=== PATIENT | female | born 1940 | race Caucasian/White ===

== ENCOUNTER 2023-09-29 20:34 | Inpatient (IN) | payer OTHER, SELFPAY ==
[2023-09-29 14:26] VITALS: BP 171/94
--- NOTE | 2023-09-29 14:49 | ED.GENMED ---
History of Present Illness
General
Chief Complaint: Musculo-Skeletal Complaint
Time Seen by Provider: 09/29/23 14:27
History of Present Illness
History of Present Illness:
83-year-old female presents to the emergency department for evaluation of severe right knee pain after falling twice at home. She was attempting to get up from a seated position and fell when right knee while flexed. Marked swelling is noted and
she is unable to move the knee without exquisite pain. She did strike her head but she is not on anticoagulants and denies any headache or vision changes
Review of Systems
Review of Systems
Allergies reviewed?: Yes
All Other Systems: ROS reviewed and negative except as documented in HPI and ROS
Phy Exam
Physical Exam
Physical Exam:
GEN: Well appearing, NAD, WDWN
HEENT: Normocephalic atraumatic Oral mucosa moist, no scleral icterus
Cardiac: Regular rate
Lung: No respiratory distress, no tachypnea
MSK: Marked swelling of the R knee, pt unable to range due to pain. NVI distal to injury
Skin: Good color, no pallor or jaundice, no rashes
Neuro: AO x3, moves all extremities freely
Psych: Calm, cooperative
Course
Orders/Labs/Results
Orders:
Orders
09/29/23 14:49
HYDROmorphone [Dilaudid] 0.5 mg IV NOW STA
CR Hip - RT w/wo Pel 2-3 Vw* Urgent
Comment:
Reason For Exam: fall
Include a pelvis x-ray?: No
CR Knee- Right 4 Or More View* Urgent
Comment:
Reason For Exam: fall
09/29/23 15:18
Basic Metabolic Panel Urgent
Complete Blood Count/With Diff Urgent
09/29/23 16:44
CT Lower Ext W/o Iv Cont Rt Urgent
Comment:
Reason For Exam: R knee injury, neg XR
09/29/23 16:48
HYDROmorphone [Dilaudid] 0.5 mg IV NOW STA
09/29/23 18:45
HYDROmorphone [Dilaudid] 0.5 mg IV NOW STA
09/29/23 18:58
MA Lower Extremity Wo Or W Co Routine
Comment: no contrast
Reason For Exam: concern quadriceps tear
OK for patient to be off Cardiac Monitoring for MRI: Yes
Recent pill cam endoscopy?: No
Pacemaker/Defibrillator?: No
09/29/23 19:00
Metaxalone [Skelaxin] 800 mg PO NOW STA
Metaxalone [Skelaxin] 800 mg PO TID PRN
Abnormal Lab Results
09/29/23
15:18
MCH 31.1 H pg
(27.0-31.0)
Absolute Monos (auto) 0.7 H 10^3/uL
(0.1-0.6)
Sodium 133 L mmol/L
(135-145)
BUN 20 H mg/dl
(7-17)
Glucose 140 H mg/dl
(70-99)
09/29/23 15:18
09/29/23 15:18
Vital Signs
Initial and Last Documented VS:
Initial Vital Signs
Temp Pulse Resp BP Pulse Ox
98.8 F 68 14 171/94 97
09/29/23 14:26 09/29/23 14:26 09/29/23 14:26 09/29/23 14:26 09/29/23 14:26
Last Documented Vital Signs
Temp Pulse Resp BP Pulse Ox
98.8 F 77 14 160/70 95
09/29/23 14:26 09/29/23 18:00 09/29/23 18:00 09/29/23 17:00 09/29/23 18:00
MDM/Problems Addressed
MDM/Problems Addressed:
Imaging w/o evidence for fracture. Clinically I suspect a quad tendon rupture given that massive hemarthrosis. Ultimately she is not able to ambulate and given advanced age, is not suitable for d/c with knee immobilizer and NWB status. Will admit
for SNF placement
*Critical Care Note
Total Time (30-74mins, 75-104mins- exclusive of procedures): Not Applicable
ED Attending Note
-
Portions of this chart may have been created with voice recognition software.� Occasional wrong word or��sound alike� substitutions may have occurred due to the inherent limitations of voice recognition software.
Discharge Plan
Departure
Patient Disposition: Admit
Date of Disposition: 09/29/23
Time of Disposition: 18:05
Admit to: Med/Surg
Presentation/result/management discussed w/ accepting MD/DO: Hospitalist
Discharge Problem:
Hemarthrosis of knee, right, Ambulatory dysfunction
Prescriptions:
No Action
'Like Prevagen'
1 tab PO DAILY
Patient Comments:
09/29/2023: family states its like Prevagen but they get it from [facility]
Ashwagandha
1 tab PO DAILY
glucosamine sulfate [Glucosamine] 500 mg Tablet
500 mg PO DAILY
Theragen Tablet
1 tab PO DAILY
acetaminophen 500 mg Tablet
1,000 mg PO Q4HPRN PRN (Reason: mild pain)
calcium carbonate [Calcium 500] 500 mg calcium (1,250 mg) Tablet
500 mg PO QPM
ascorbic acid (vitamin C) [Vitamin C] 500 mg Tablet
500 mg PO DAILY
vitamin E 268 mg (400 unit) Capsule
268 mg PO QPM
magnesium 200 mg Tablet
200 mg PO QPM
cholecalciferol (vitamin D3) [Vitamin D3] 25 mcg (1,000 unit) Tablet
25 mcg PO DAILY
Beet Root
2 tab PO DAILY
apple cider vinegar
2 tab PO QPM
collagen
1 tab PO QPM
Referrals:
Kaia Foss PA-C [Family Provider] -
Interventions
Interventions:
*Risk Screen - Suicide Last Done: 09/29/23 14:29
*General Assessment Last Done: 09/29/23 14:29
*Neglect/Abuse Screening Last Done: 09/29/23 14:29
*ED COVID-19 Vaccine History Last Done: 09/29/23 14:29
ED-Musculoskeletal Assessment Last Done: 09/29/23 14:30
Discharge Date and Time
Print Language: AZERI
[2023-09-29] MEDS: DILAUDID IV (15:13)
[2023-09-29] MEDS: DILAUDID 0.5 MG IV ×3 (15:15→18:49)
[2023-09-29 15:34] LABS: % Basophils 0.9 % (0-2); % Eosinophils 2.1 % (0-6); % Immature Granulocytes 0.3 % (0-0.5); % Lymphocytes 26.1 % (20.5-51.1); % Monocytes 7.5 % (1.7-9.3); % Neutrophils 63.1 % (42.2-75.2); Absolute Basophils 0.1 10^3/uL (0-0.2); Absolute Eosinophils 0.2 10^3/uL (0-0.7); Absolute Lymphocytes 2.4 10^3/uL (1.2-3.4); Absolute Monocytes 0.7 10^3/uL (0.1-0.6); Absolute Neutrophils 5.7 10^3/uL (1.4-6.5); Hematocrit 41.4 % (37.0-47.0); Hemoglobin 14.2 g/dL (12.0-16.0); Mean Corp Hgb Conc. 34.3 g/dL (33.0-37.0); Mean Corpuscular Hgb 31.1 pg (27.0-31.0); Mean Corpuscular Volume 90.6 fL (81.0-99.0); Mean Platelet Volume 9.8 fL (7.4-10.4); Nucleated Red Blood Cells % 0 %; Platelet Count 309 10^3/uL (130-400); Red Blood Cell Count 4.57 10^6/uL (4.20-5.40); Red Cell Dist. Width 13.1 % (11.5-14.5)
[2023-09-29 15:47] LABS: Blood Urea Nitrogen 20 mg/dl (7-17); Calcium 9.9 mg/dl (8.4-10.2); Carbon Dioxide 26 mmol/L (22-30); Chloride 98 mmol/L (98-107); Estimated Creatinine Clearance 67 ml/min; Glucose 140 mg/dl (70-99); Sodium 133 mmol/L (135-145); eGFR > 60.00
[2023-09-29 17:00] VITALS: BP 160/70
--- NOTE | 2023-09-29 18:42 | HPS.HSE ---
Family Physician
-
Family Physician: Kaia Foss
Chief Complaint
-
Fall, right knee pain
History of Present Illness
83-year-old female complaining of severe right knee pain after falling twice at home. She reports she was attempting to do from a seated position and fell with a flexed knee. Normally does yoga and Pilates weekly she sees a PCP routinely does not
take any medication. She denies headache, fever, chills, chest pain, palpitations, shortness breath, cough, abdominal pain, nausea, vomiting, diarrhea, urinary symptoms. Only past medical history includes a left knee replacement done by Dr. Eubanks
at [place]
Medical History
Past Medical History
Past Medical History: Reports None
Past Surgical History: Reports Other
Additional Past Surgical History:
Left knee replacement 2021 [facility]
Social History
Tobacco: Non-smoker
Alcohol: None
Drug: None
Personal: Single
Living: Alone
Employment: Retired
Family History
Family History: Not pertinent
Allergies / Home Medications
Allergies reflects when Allergies were last updated in [facility].
Home Medications with original date entered in [facility]
Allergy/Medication List:
Allergies
Allergy/AdvReac Type Severity Reaction Status Date / Time
No Known Allergies Allergy Verified 09/29/23 14:26
Home Medications
'Like Prevagen' 1 tab PO DAILY 09/29/23
Ashwagandha 1 tab PO DAILY 09/29/23
Beet Root 2 tab PO DAILY 09/29/23
acetaminophen 500 mg tablet 1,000 mg PO Q4HPRN PRN mild pain 09/29/23
apple cider vinegar 2 tab PO QPM 09/29/23
ascorbic acid (vitamin C) 500 mg tablet (Vitamin C) 500 mg PO DAILY 09/29/23
calcium carbonate 500 mg PO QPM 09/29/23
cholecalciferol (vitamin D3) 25 mcg (1,000 unit) tablet (Vitamin D3) 25 mcg PO DAILY 09/29/23
collagen 1 tab PO QPM 09/29/23
glucosamine sulfate 500 mg tablet (Glucosamine) 500 mg PO DAILY 09/29/23
magnesium 200 mg tablet 200 mg PO QPM 09/29/23
therapeutic multivitamin 1 tab PO DAILY 09/29/23
vitamin E 268 mg (400 unit) capsule 268 mg PO QPM 09/29/23
Review of Systems
-
History Source: Patient and Family (Daughter at bedside)
A 12 point ROS was completed and negative except as noted: Yes
Constitutional: Denies Fever or Chills
EENT: Denies Sore Throat or Runny Nose
Respiratory: Denies Cough or Trouble Breathing
Cardiac: Denies Chest Pain, Diaphoresis, Palpitations or Syncope
Abdomen/GI: Denies Abdominal Pain, Nausea, Vomiting, Diarrhea, Constipated or Bloody Stools
: Denies Dysuria, Frequency, Flank Pain, Incontinence or Difficulty Voiding
Musculoskeletal: Reports Joint Pain (Right knee tenderness suprapatella and medial aspect with generalized swelling) and Edema (Right knee)
Skin: Denies Itching or Rash
Neurological: Denies Dizzy, Headache or Weakness
Endocrine: Reports No Symptoms
Hematologic/Lymphatic: Reports No Symptoms
Psych: Reports Calm
Physical Exam
Vital Signs
Vital Signs
Temp Pulse Resp BP Pulse Ox
98.8 F 77 14 160/70 95
09/29/23 14:26 09/29/23 18:00 09/29/23 18:00 09/29/23 17:00 09/29/23 18:00
Physical Exam
General: Conversant and Pain; No Fever or Chills
HEENT: NormoCephalic, Anicteric, Moist mucous membranes, Atraumatic, PERRLA, [place] Conjunctivae and No Ptosis
Respiratory: Clear; No Wheezes, Rales or Rhonchi
Cardiac: S1/S2 and Regular Rhythm; No Murmur, Rub, Gallop or Peripheral Edema
Breast: Deferred by me
GI: Soft, Non Tender, Non Distended, Normal Bowel Sounds and No Hepatosplenomegaly
Rectal: Deferred by Provider
Genito-urinary: Deferred by me
Musculoskeletal: No Clubbing, No Cyanosis and Edema, Right Lower Extremity (Right knee tenderness suprapatella and medial aspect with generalized swelling, knee immobilizer in place); No Edema, Left Upper Extremity, Edema, Right Upper Extremity or
Edema, Left Lower Extremity
Skin: Warm and Dry; No Rash
Neuro: AO x 3, Cranial Nerves Intact and No Sensory Deficits; No Slurred Speech, Facial Droop or Tremors
Psych: Anxious (Secondary to pain)
Laboratory Results
-
09/29/23 15:18
09/29/23 15:18
Laboratory Results
Total Bilirubin Cancelled 09/29/23 15:18
AST Cancelled 09/29/23 15:18
ALT Cancelled 09/29/23 15:18
Alkaline Phosphatase Cancelled 09/29/23 15:18
Data Reviewed
-
CT Scan: Report Reviewed by me
Lab Data: Labs Reviewed by me
Impression/Plan
-
Impression/plan:
Admit to MedSurg
#Right knee pain/effusion concern for quadriceps tendon rupture
-Consult Ortho- Dr goins aware
-Pain control with Dilaudid
-Knee immobilizer
-Will get MRI lower extremity
PT/OT/case management consult
CT lower extremity large joint effusion extending to the suprapatellar recess could represent hemorrhage within the effusion. Incidental small lipoma in the medial right gastrocnemius
DVT prophylaxis
SCD left leg
DNR per patient with daughter present at bedside
--- NOTE | 2023-09-29 18:52 | W.PN.UPDATE ---
Update Note
Progress Note Update
This is an addendum to the H&P written by RUIZ Caraballo on 09/29/2023. Patient seen and examined independently with BATTERY WRECKER OPERATOR.
83-year-old female without any past medical history presenting with fall and severe right knee pain and inability to bear weight afterwards. Knee x-ray shows no evidence of fracture, large suprapatellar joint effusion. Lower extremity CT shows
large joint effusion extending into the suprapatellar recess which could represent hemorrhage and effusion.
Concern for right quadriceps tendon rupture with hemorrhagic suprapatellar effusion.. May require MRI of knee. Pain control with Dilaudid. Orthopedics consulted.
[2023-09-29] MEDS: SKELAXIN 800 MG PO (21:00)
[2023-09-29 22:39] VITALS: BP 161/97
[2023-09-29 22:40] VITALS: BMI 35.2
--- NOTE | 2023-09-29 22:45 | PTCARENOTE ---
Pt arrived to room 435-01. Pt transferred from stretcher to bed. Pt AAOx3, VSS. Pt c/o 8/10 pain in right leg with movement but minimal pain at rest. Pt oriented to room, call hernadez placed within reach.
[2023-09-30] MEDS: DILAUDID 0.5 MG IV ×4 (00:38→12:33)
[2023-09-30 07:00] VITALS: BP 179/76
[2023-09-30 07:25] LABS: % Basophils 0.4 % (0-2); % Eosinophils 0.1 % (0-6); % Immature Granulocytes 0.3 % (0-0.5); % Lymphocytes 21.7 % (20.5-51.1); % Monocytes 9.4 % (1.7-9.3); % Neutrophils 68.1 % (42.2-75.2); Absolute Basophils 0.1 10^3/uL (0-0.2); Absolute Lymphocytes 2.4 10^3/uL (1.2-3.4); Absolute Monocytes 1.1 10^3/uL (0.1-0.6); Absolute Neutrophils 7.6 10^3/uL (1.4-6.5); Hematocrit 34.8 % (37.0-47.0); Hemoglobin 11.9 g/dL (12.0-16.0); Mean Corp Hgb Conc. 34.2 g/dL (33.0-37.0); Mean Corpuscular Hgb 30.4 pg (27.0-31.0); Mean Corpuscular Volume 88.8 fL (81.0-99.0); Mean Platelet Volume 9.9 fL (7.4-10.4); Nucleated Red Blood Cells % 0 %; Platelet Count 298 10^3/uL (130-400); Red Blood Cell Count 3.92 10^6/uL (4.20-5.40); Red Cell Dist. Width 13.2 % (11.5-14.5); White Blood Cell Count 11.2 10^3/uL (4.8-10.8)
--- NOTE | 2023-09-30 07:40 | W.PN.UPDATE ---
Update Note
Progress Note Update
Patient seen and examined and chart reviewed
Patient localizing pain to the superior pole patella right knee
Unable to straight leg raise or actively extend knee with associated effusion clinically
83-year-old female clinical concern for right quadriceps tendon rupture. Plan to obtain MRI today with tentative plans for OR later this afternoon/early evening pending MRI results, medical clearance and OR availability
Please keep n.p.o.
Formal consult note to follow
Please reach out with questions or concerns
[2023-09-30 07:42] LABS: ALT (SGPT) 18 U/L (0-35); AST (SGOT) 24 U/L (14-36); Albumin 3.9 g/dl (3.5-5.0); Alkaline Phosphatase 61 U/L (38-126); Blood Urea Nitrogen 19 mg/dl (7-17); Calcium 9.2 mg/dl (8.4-10.2); Carbon Dioxide 25 mmol/L (22-30); Chloride 98 mmol/L (98-107); Estimated Creatinine Clearance 76 ml/min; Glucose 120 mg/dl (70-99); Sodium 129 mmol/L (135-145); Total Bilirubin 0.6 mg/dl (0.2-1.3); Total Protein 6.3 g/dl (6.3-8.2); eGFR > 60.00
[2023-09-30] MEDS: VITAMIN D3 (cholecalciferol) PO (08:55)
[2023-09-30] MEDS: ZOFRAN 4 MG IV (08:56)
--- NOTE | 2023-09-30 13:58 | W.PN.HOSP.TC ---
Today's Communication/Plan
-
Spoke with ortho -- no surgery, but conservative management at this time
Sodium worsening, now into upper 120s from 130s. PO FR started, nephrology consulted
PT/OT
Can be weight bearing as tolerated to the right knee with knee immobilizer
Assessment / Plan
Assessment / Plan
Physical Exam
General: Conversant and Pain; No Fever or Chills
HEENT: NormoCephalic, Anicteric, Moist mucous membranes, Atraumatic, PERRLA, [place] Conjunctivae and No Ptosis
Respiratory: Clear; No Wheezes, Rales or Rhonchi
Cardiac: S1/S2 and Regular Rhythm; No Murmur, Rub, Gallop or Peripheral Edema
Breast: Deferred by me
GI: Soft, Non Tender, Non Distended, Normal Bowel Sounds and No Hepatosplenomegaly
Rectal: Deferred by Provider
Genito-urinary: Deferred by me
Musculoskeletal: No Clubbing, No Cyanosis and Edema, Right Lower Extremity (Right knee tenderness suprapatella and medial aspect with generalized swelling, knee immobilizer in place); No Edema, Left Upper Extremity, Edema, Right Upper Extremity or
Edema, Left Lower Extremity
Skin: Warm and Dry; No Rash
Neuro: AO x 3, Cranial Nerves Intact and No Sensory Deficits; No Slurred Speech, Facial Droop or Tremors
Psych: Anxious (Secondary to pain)

MRI of the Right Knee, as per radiologist's report
IMPRESSION:
1. High-grade tear at the attachment of the patella with the medial patellar retinaculum and medial patellofemoral ligament.
2. No MRI evidence for a quadriceps tendon tear.
3. Large hemarthrosis.
4. Severe osteoarthrosis of the right knee with extensive full-thickness articular cartilage loss involving the entire patella and femoral trochlea.

Assessment/Plan
83-year-old female without any past medical history presented with fall and severe right knee pain and inability to bear weight afterwards. Knee x-ray showed no evidence of fracture, but large suprapatellar joint effusion. Lower extremity CT shows
large joint effusion extending into the suprapatellar recess which could represent hemorrhage and effusion.
#Right knee pain, likely dislocated patella
#Tricompartment degenerative changes and large suprapatellar joint effusion of the right knee
-Consulted Ortho: no surgery needed as no quad tendon tear on MRI, but likely dislocated patella
-Pain control
-WBAT
-Knee immobilizer
-Follow-up with Dr. Bobby in 10 to 14 days outpatient
#Hyponatremia -- Euvolemic
-Sodium worsening 133 to 129 overnight
-Started PO FR 48 ounces per day
-Ordered urine and serum osmoles, and urine sodium
-Consulted nephrology for possible Samsca or 3% saline
DVT prophylaxis: SCDs, will check with orthopedics about doing Lovenox or Heparin subq for DVT prophylaxis
Code Status: DNR
Anticipated Discharge: Within 24 hours
Subjective/Interval History
-
Date of Service: September 30, 2023
Patient was seen and examined. She reported continued pain in her right knee, otherwise denied any other new, significant symptoms or complaints.
Objective Data
-
Labs:
Laboratory Results
09/30/23
06:23
WBC 11.2 H
Hgb 11.9 L
Hct 34.8 L
Plt Count 298
Sodium 129 L
Potassium 4.0
Chloride 98
Carbon Dioxide 25
BUN 19 H
Creatinine 0.6
Glucose 120 H
Calcium 9.2
Total Bilirubin 0.6
AST 24
ALT 18
Alkaline Phosphatase 61
Vital Signs:
Vital Signs
Temp Pulse Resp BP Pulse Ox
98.1 F 68 14 179/76 96
09/30/23 07:00 09/30/23 07:00 09/30/23 07:00 09/30/23 07:00 09/30/23 07:00
I&O
09/29/23 09/30/23 10/01/23
06:59 06:59 06:59
Intake Total 480 / 480
Output Total 250 / 250
Balance 230 / 230
[2023-09-30 14:40] LABS: Osmolality Serum 277 mOsm/kg (275-300)
[2023-09-30 15:25] VITALS: BP 152/89
--- NOTE | 2023-09-30 15:36 | W.CON.NEPH ---
Consultation
-
Date/Time Consultation Requested: 09/30/23 1455
Date/Time Consultation Performed: 09/30/23 1730
Requesting Provider: Harsh Acosta
Performing Provider: Katharina La
Reason for Consultation: Hyponatremia
Medical History
-
Chief Complaint: Fall, right knee pain
History of Present Illness:
83-year-old female complaining of severe right knee pain after falling twice at home. She reports she was attempting to get up from a seated position and fell with a flexed knee. Normally does yoga and Pilates weekly and she sees a PCP routinely
does not take any prescribed medication other than on multiple supplements. She denies headache, fever, chills, chest pain, palpitations, shortness breath, cough, abdominal pain, nausea, vomiting, diarrhea, urinary symptoms. Only past medical
history includes a left knee replacement done by Dr. Eubanks at [place].
On admit her sodium was at 133 and this morning down to 129. No previous labs to compare. She reports not really eating for 2days, and continues to have discomfort of right knee.
Past Medical History
none
Past Surgical History: Other (Left knee replacement 2021 [facility] )
Social History
Tobacco: Non-Smoker
Alcohol: None
Drug: None
Personal: Single
Living: Alone
Employment: Retired (tonsorial artist)
Family History
Family History: Not Pertinent
Allergies / Home Medications
Allergy/AdvReac Type Severity Reaction Status Date / Time
No Known Allergies Allergy Verified 09/29/23 14:26
�Medication �Instructions �Recorded �Confirmed �Type
'Like Prevagen' 1 tab PO DAILY Supplement 09/29/23 09/29/23 History
Ashwagandha 1 tab PO DAILY Supplement 09/29/23 09/29/23 History
Beet Root 2 tab PO DAILY Supplement 09/29/23 09/29/23 History
acetaminophen 500 mg tablet 1,000 mg PO Q4HPRN PRN mild pain 09/29/23 09/29/23 History
apple cider vinegar 2 tab PO QPM Supplement 09/29/23 09/29/23 History
ascorbic acid (vitamin C) 500 mg 500 mg PO DAILY Supplement 09/29/23 09/29/23 History
tablet (Vitamin C)
calcium carbonate 500 mg PO QPM Supplement 09/29/23 09/29/23 History
cholecalciferol (vitamin D3) 25 25 mcg PO DAILY Supplement 09/29/23 09/29/23 History
mcg (1,000 unit) tablet (Vitamin
D3)
collagen 1 tab PO QPM Supplement 09/29/23 09/29/23 History
glucosamine sulfate 500 mg tablet 500 mg PO DAILY Supplement 09/29/23 09/29/23 History
(Glucosamine)
magnesium 200 mg tablet 200 mg PO QPM Supplement 09/29/23 09/29/23 History
therapeutic multivitamin 1 tab PO DAILY Supplement 09/29/23 09/29/23 History
vitamin E 268 mg (400 unit) capsule 268 mg PO QPM Supplement 09/29/23 09/29/23 History
Review of Systems
-
all complete 12 point ROS have been inquired and found negative other than stated in HPI
Physical Exam
Vital Signs
Vital Signs
Temp Pulse Resp BP Pulse Ox
97.5 F 83 16 152/89 95
09/30/23 15:25 09/30/23 15:25 09/30/23 15:25 09/30/23 15:25 09/30/23 15:25
Lab Results
WBC 11.2 10^3/uL (4.8-10.8) H 09/30/23 06:23
RBC 3.92 10^6/uL (4.20-5.40) L 09/30/23 06:23
Hgb 11.9 g/dL (12.0-16.0) L 09/30/23 06:23
Hct 34.8 % (37.0-47.0) L 09/30/23 06:23
Plt Count 298 10^3/uL (130-400) 09/30/23 06:23
Sodium 129 mmol/L (135-145) L 09/30/23 06:23
Potassium 4.0 mmol/L (3.5-5.1) 09/30/23 06:23
Chloride 98 mmol/L (98-107) 09/30/23 06:23
Carbon Dioxide 25 mmol/L (22-30) 09/30/23 06:23
BUN 19 mg/dl (7-17) H 09/30/23 06:23
Creatinine 0.6 mg/dL (0.6-1.0) 09/30/23 06:23
eGFR > 60.00 09/30/23 06:23
Glucose 120 mg/dl (70-99) H 09/30/23 06:23
Calcium 9.2 mg/dl (8.4-10.2) 09/30/23 06:23
Albumin 3.9 g/dl (3.5-5.0) 09/30/23 06:23
MRI knee:
IMPRESSION:
1. High-grade tear at the attachment of the patella with the medial patellar retinaculum and medial patellofemoral ligament.
2. No MRI evidence for a quadriceps tendon tear.
3. Large hemarthrosis.
4. Severe osteoarthrosis of the right knee with extensive full-thickness articular cartilage loss involving the entire patella and femoral trochlea.
CT LE:
IMPRESSION: No CT evidence for acute fracture or dislocation.
There is a large joint effusion extending into the suprapatellar recess. Effusion has heterogeneous attenuation, with superolateral attenuation measuring up to 53 Hounsfield units, and inferomedial attenuation in the range of 1 Hounsfield unit. This
heterogeneity of attenuation could represent a component of hemorrhage within the effusion, versus a component of chronic synovitis within the effusion. Of note, there is also a small 3 mm calcification within the effusion,
hip Xray:
IMPRESSION: No radiographic evidence of acute fracture or dislocation.
If there are persistent clinical symptoms and further imaging evaluation is desired, consider CT or MRI.
Physical Exam
General: Awake, Alert, Oriented, AOx3, No Distress and Nontoxic
HEENT: EOMI and Anicteric
Respiratory: Clear, Normal Excursion and Nonlabored Respirations
Cardiac: S1/S2 and Regular Rate/Rhythm
Breast: Deferred by me
Abdomen: Soft, Nontender and Nondistended
Musculoskeletal: No Cyanosis, No Edema and Other (rt knee in immobilizer)
Skin: No Rash
Neuro: Nonfocal/Grossly Intact
Psych: Mood/afflect pleasant, Insight/judgement good and Appropriate
Data Reviewed
-
Radiology: Report Reviewed by me
Labs: Labs Reviewed by me and Discussed with Patient
Assessment/Plan
-
IMP:
Right knee pain, likely dislocated patella
Tricompartment degenerative changes and large suprapatellar joint effusion of the right knee
Hyponatremia
elevated BPs with out HTN
PLan:
A/w fall and knee injury, no surg intervention planned
hyponatremia -evolving most likely with pain stimulating ADH
check U somo, U na,
check TSH in am
BP are high likely from pain
avoid NSAIDs as they limit free water excretion
if U osmo is high likely dose samsca
start FR 48ounces/day
pain control
labs in am
--- NOTE | 2023-09-30 15:50 | CM ---
biology manager reviewed patient's chart and met with patient and patient resides at [facility], one story home, patient is independent with adl's and ambulates with a cane or walker.
PCP: Kaia Foss
Pharmacy; [facility]
Plan; Home when stable. Patient would benefit from PT/OT evaluations to assist with discharge planning.
[2023-09-30] MEDS: TORADOL 15 MG IV (16:03)
[2023-09-30] MEDS: TYLENOL 1000 MG PO ×2 (16:04→23:04)
[2023-09-30 16:38] LABS: Osmolality Urine 600 mOsm/kg (300-900)
[2023-09-30 16:58] LABS: Urine Sodium 112 mmol/L (30-90)
--- NOTE | 2023-09-30 17:03 | CON.ORTHO ---
Addendum entered and electronically signed by Abdi Bobby MD 09/30/23 17:13:
There is evidence of subchondral edema medial patella, lateral femoral condyle on my read
Original Note:
Consultation
-
Date/Time Consultation Requested: 09/29/2023 7 PM
Date/Time Consultation Performed: 715 AM 09/29/2023
Requesting Provider: Primary
Performing Provider: Kanu
Reason for Consultation: Right knee pain
Consultation - Orthopedics
History
HPI: 83-year-old female to the presented to the emergency department with complaints of right knee pain and difficulty bearing weight. She was subsequently admitted to the hospital service for ambulatory dysfunction with concern for possible
quadriceps tendon rupture. This morning patient localizes pain to the proximal and anterior and medial aspect of the right knee. She reports that she has extreme difficulty extending her knee. She has had difficulty bearing weight. She does
typically use a cane for ambulatory assistance. She reports that she lives alone at home. She reports that she does not take any medication but her daughter does make her vitamin concoctions. She does report that she is quite active and does
participate in yoga related activities at baseline. She reports that she sustained a fall at home onto her flexed knee at the onset of her symptoms
Allergies / Home Medications
Past medical history: None reported
Past surgical history: Left total knee arthroplasty [place] [address] HUSTON
Family history: Not pertinent
Social history: , lives alone at home
Allergy/AdvReac Type Severity Reaction Status Date / Time
No Known Allergies Allergy Verified 09/29/23 14:26
�Medication �Instructions �Recorded
'Like Prevagen' 1 tab PO DAILY Supplement 09/29/23
Ashwagandha 1 tab PO DAILY Supplement 09/29/23
Beet Root 2 tab PO DAILY Supplement 09/29/23
acetaminophen 500 mg tablet 1,000 mg PO Q4HPRN PRN mild pain 09/29/23
apple cider vinegar 2 tab PO QPM Supplement 09/29/23
ascorbic acid (vitamin C) 500 mg 500 mg PO DAILY Supplement 09/29/23
tablet (Vitamin C)
calcium carbonate 500 mg PO QPM Supplement 09/29/23
cholecalciferol (vitamin D3) 25 25 mcg PO DAILY Supplement 09/29/23
mcg (1,000 unit) tablet (Vitamin
D3)
collagen 1 tab PO QPM Supplement 09/29/23
glucosamine sulfate 500 mg tablet 500 mg PO DAILY Supplement 09/29/23
(Glucosamine)
magnesium 200 mg tablet 200 mg PO QPM Supplement 09/29/23
therapeutic multivitamin 1 tab PO DAILY Supplement 09/29/23
vitamin E 268 mg (400 unit) capsule 268 mg PO QPM Supplement 09/29/23
Vital Signs / Lab Results
Temp Pulse Resp BP Pulse Ox
97.5 F 83 16 152/89 95
09/30/23 15:25 09/30/23 15:25 09/30/23 15:25 09/30/23 15:25 09/30/23 15:25
09/30/23 06:23
09/30/23 06:23
10 point review systems reviewed and negative unless otherwise stated
General: Pleasant, no acute distress at rest
Musculoskeletal right lower extremity
Skin intact, no erythema, no ecchymotic staining
There is palpable knee effusion
There is tenderness palpation over the proximal pole patella
There is tenderness palpation along the medial aspect the patella
There is tenderness palpation along the medial joint line
No significant lateral joint line tenderness palpation
Patient is unable to straight leg raise or actively extend the knee today on examination
Distal motor and sensation at baseline
No other areas of bony tenderness palpation or crepitation of long bones and joints on tertiary examination
Diagnostic studies
X-rays CT scan and MRI of left knee reviewed by myself. There is no evidence of fracture. There is evidence of significant hemarthrosis with evidence of MRI of medial retinacular tea and MPFL tear. No bone bruise or edema noted. There is no
evidence of quadriceps tendon rupture on MRI. there is evidence of tricompartmental degenrative changes.
Assessment / Plan
83-year-old female status post fall with evidence of MPFL and medial patellar retinacular tear. There is no evidence of quadriceps tendon rupture on MRI. I had a long discussion with the patient regarding diagnosis and treatment options. Would
not recommend any surgical intervention. I explained her that she likely sustained a subluxation or dislocation of her patella. Would recommend temporary immobilization and knee immobilizer. Patient can bear weight to her tolerance in the knee
immobilizer. Would recommend pain control and DVT prophylaxis per primary team. Would like to see patient back in the office in about 2 weeks for repeat evaluation. Hopefully at that point we can transition her to a hinged knee brace and progress
with physical therapy for range of motion exercises. All questions were addressed and answered. Please reach out with concerns
Weightbearing as tolerated right lower extremity and knee immobilizer
Pain control
PT OT
DVT prophylaxis per primary team
Medical management per primary team
Plan to have patient follow-up on outpatient basis about 2 weeks for repeat evaluation
No acute orthopedic intervention planned
[2023-09-30] MEDS: LOVENOX 40 MG SC (18:28)
[2023-09-30] MEDS: SAMSCA 7.5 MG PO (20:34)
[2023-09-30 23:42] VITALS: BP 175/86
--- NOTE | 2023-10-01 02:36 | PTCARENOTE ---
Pt with multiple episodes of confusion throughout the night. Pt wakes up not knowing where she is attempting to take off immobilizer and get OOB. Pt reoriented and helped get settled back into bed. Bed alarm in place.
--- NOTE | 2023-10-01 05:54 | PTCARENOTE ---
Pt awoke c/o discomfort of leg immobilizer and started to rip it off. Pt asked if it was leg pain or discomfort from device pt stated from device, when asked if she needed pain meds she declined. Pt educated on need to keep immobilizer on and risks
of further injury if taken off. Pt refused other options such as readjusting or putting extra foams inside for comfort. Pt oriented at this time, answering all questions appropriately such as setting, time, year etc while stating the Dr said there
was no breaks or tears only a little strain and that she did not need the immobilizer. Pt states, 'If you put that near me I will simin you I don't care what you have to say.' TEST DESK TROUBLE LOCATOR made aware.
[2023-10-01 07:05] LABS: % Basophils 0.5 % (0-2); % Eosinophils 0.3 % (0-6); % Immature Granulocytes 0.3 % (0-0.5); % Monocytes 9.9 % (1.7-9.3); Absolute Basophils 0.1 10^3/uL (0-0.2); Absolute Lymphocytes 1.7 10^3/uL (1.2-3.4); Absolute Monocytes 1.1 10^3/uL (0.1-0.6); Absolute Neutrophils 8.2 10^3/uL (1.4-6.5); Hematocrit 39.5 % (37.0-47.0); Hemoglobin 13.5 g/dL (12.0-16.0); Mean Corp Hgb Conc. 34.2 g/dL (33.0-37.0); Mean Corpuscular Hgb 30.3 pg (27.0-31.0); Mean Corpuscular Volume 88.6 fL (81.0-99.0); Mean Platelet Volume 9.6 fL (7.4-10.4); Nucleated Red Blood Cells % 0 %; Platelet Count 318 10^3/uL (130-400); Red Blood Cell Count 4.46 10^6/uL (4.20-5.40)
[2023-10-01 07:18] VITALS: BP 178/80
--- NOTE | 2023-10-01 07:38 | W.PN.ORTHO ---
Today's Communication / Plan
-
83-year-old female with right knee pain MRI evidence of MPFL medial retinacular tear. No evidence of quadriceps tendon rupture. Baseline tricompartmental degenerative joint disease
Weightbearing as tolerated right lower extremity in knee immobilizer
PT OT
DVT prophylaxis per primary team
Medical management per primary team
Could consider transitioning patient to a hinged knee brace locked in extension if patient is adamant about not wearing the immobilizer. My initial plan would be to transition to her hinged knee brace on outpatient basis but could consider doing
this during her hospitalization if is not significantly delaying her discharge
No acute orthopedic intervention planned
Follow-up outpatient basis and 2 weeks for repeat evaluation. Please reach out any questions or concerns
Subjective
.
.:
Patient resting comfortably in bed. Patient voiced concerns with her knee immobilizer reports that this is quite uncomfortable for her.
Vital Signs and Labs
.
Vital Signs and Labs:
Lab Results
10/01/23 06:45
Temp Pulse Resp BP Pulse Ox
98.5 F 79 18 175/86 95
09/30/23 23:42 09/30/23 23:42 09/30/23 23:42 09/30/23 23:42 09/30/23 23:42
Physical Exam
-
Musculoskeletal right lower extremity
Skin intact, no erythema, no ecchymosis no palpable knee effusion
Limited knee range of motion secondary to pain
There is diffuse tenderness palpation over medial joint line medial aspect of patella
Continued tenderness palpation over proximal pole of patella
Distal motor sensation at baseline
Brisk cap refill distally
[2023-10-01 07:39] LABS: ALT (SGPT) 22 U/L (0-35); AST (SGOT) 31 U/L (14-36); Albumin 4.6 g/dl (3.5-5.0); Alkaline Phosphatase 71 U/L (38-126); Blood Urea Nitrogen 17 mg/dl (7-17); Carbon Dioxide 29 mmol/L (22-30); Chloride 99 mmol/L (98-107); Estimated Creatinine Clearance 76 ml/min; Glucose 132 mg/dl (70-99); Potassium 4.5 mmol/L (3.5-5.1); Sodium 136 mmol/L (135-145); Total Bilirubin 0.8 mg/dl (0.2-1.3); Total Protein 7.3 g/dl (6.3-8.2); eGFR > 60.00
[2023-10-01 08:09] LABS: TSH Reflex To Free T4 3.28 uIU/ml (0.47-4.68)
[2023-10-01] MEDS: TYLENOL 1000 MG PO ×2 (10:25→18:30)
[2023-10-01] MEDS: VITAMIN D3 (cholecalciferol) 25 MCG PO (10:25)
[2023-10-01 11:18] VITALS: PULSE 62; O2SAT 96
[2023-10-01] MEDS: NORVASC 2.5 MG PO (12:22)
--- NOTE | 2023-10-01 12:37 | W.PN.HOSP.TC ---
Today's Communication/Plan
-
Discharge today
Assessment / Plan
Assessment / Plan
Physical Exam
General: Not in acute distress
HEENT: Normocephalic
Respiratory: Clear to Auscultation Bilaterally
Cardiac: S1/S2 and Regular Rhythm
GI: Soft, Non Tender, Non Distended, Normal Bowel Sounds
Musculoskeletal: No Cyanosis. Edema, Right Lower Extremity (Right knee tenderness suprapatella and medial aspect with generalized swelling)
Skin: Warm and Dry
Neuro: AAO x 3, Nonfocal/grossly intact bilaterally
Psych: Anxious (Secondary to pain)

MRI of the Right Knee, as per radiologist's report
IMPRESSION:
1. High-grade tear at the attachment of the patella with the medial patellar retinaculum and medial patellofemoral ligament.
2. No MRI evidence for a quadriceps tendon tear.
3. Large hemarthrosis.
4. Severe osteoarthrosis of the right knee with extensive full-thickness articular cartilage loss involving the entire patella and femoral trochlea.

Assessment/Plan
83-year-old female without any past medical history presented with fall and severe right knee pain and inability to bear weight afterwards. Knee x-ray showed no evidence of fracture, but large suprapatellar joint effusion. Lower extremity CT shows
large joint effusion extending into the suprapatellar recess which could represent hemorrhage and effusion.
#Right knee pain, likely dislocated patella
#Tricompartment degenerative changes and large suprapatellar joint effusion of the right knee
-Consulted Ortho: no surgery needed as no quad tendon tear on MRI, but likely dislocated patella
-Pain control
-Weightbearing as tolerated right lower extremity in knee immobilizer
-Knee immobilizer but as per orthopedics, could consider transitioning patient to a hinged knee brace locked in extension if patient is adamant about not wearing the immobilizer. Dr. Bobby's initial plan would be to transition to her hinged knee
brace on outpatient basis but could consider doing this during her hospitalization if it does not significantly delay her discharge
-Follow-up with Dr. Bobby in 10 to 14 days outpatient
#Hyponatremia -- Euvolemic -- RESOLVED
-Sodium previously worsened 133 to 129 overnight but now back to normal
-Continue PO FR 48 ounces per day
-Consulted nephrology for possible Samsca or 3% saline: patient received Samsca on 09/30/23
#Hypertension
-Started low sodium diet
-Amlodipine 2.5 mg daily started as new medication
DVT prophylaxis: Lovenox
Code Status: DNR
More than 30 minutes spent in discharge including
Final examination of the patient
Summarizing hospital stay
Instructions for continuing care to all relevant caregivers
Preparation of discharge records, prescriptions, and referral forms
Total time spent (in minutes): 45
Anticipated Discharge: Today
Subjective/Interval History
-
Date of Service: October 01, 2023
Patient was seen and examined. She reported some pain in her right knee, nurse reported patient has been having hypertension, otherwise no other symptoms or complaints.
Objective Data
-
Labs:
Laboratory Results
10/01/23
06:45
WBC 11.0 H
Hgb 13.5
Hct 39.5
Plt Count 318
Sodium 136
Potassium 4.5
Chloride 99
Carbon Dioxide 29
BUN 17
Creatinine 0.6
Glucose 132 H
Calcium 10.0
Total Bilirubin 0.8
AST 31
ALT 22
Alkaline Phosphatase 71
Vital Signs:
Vital Signs
Temp Pulse Resp BP Pulse Ox
98.4 F 90 18 178/80 96
10/01/23 07:18 10/01/23 07:18 10/01/23 07:18 10/01/23 07:18 10/01/23 07:18
I&O
09/30/23 10/01/23 10/02/23
06:59 06:59 06:59
Intake Total 480 / 480 960 / 960
Output Total 250 / 250 2450 / 2450
Balance 230 / 230 -1490 / -1490
[2023-10-01] MEDS: SKELAXIN 800 MG PO (12:43)
--- NOTE | 2023-10-01 14:07 | CM ---
Addendum entered by Christine Kan 10/01/23 15:41:
Met with patient at bedside and spoke with patient's daughter via phone to discuss discharge planning and SNF recommendation
Reviewed list of facilities with daughter; [facility]
Referral submitted via [facility]
Plan: discharge to SNF pending bed availability and AUTH approval
Original Note:
Per Charla ([employer] [place] [employer]), Order for Hinged knee brace locked in extension (instead of knee immobilizer) sent to [facility]
[2023-10-01 14:30] VITALS: BP 161/87
--- NOTE | 2023-10-01 16:28 | W.PN.NEPH.PH ---
Today's Communication / Plan
-
- s/o
Assessment/Plan
-
IMP:
Right knee pain, likely dislocated patella
Tricompartment degenerative changes and large suprapatellar joint effusion of the right knee
Hyponatremia
elevated BPs with out HTN
PLan:
A/w fall and knee injury, no surg intervention planned
hyponatremia -normalized
urine lytes consistent with SIADH
TSH wnl
BP are high likely from pain
avoid NSAIDs as they limit free water excretion
start FR 48ounces/day
pain control
labs in am
-
-
Date of Service: October 01, 2023
CC / HPI / ROS
-
Chief Complaint:
hyponatremia
History of Present Illness:
Na now normalized
Review of Systems:
feeling well
Labs
-
Labs:
WBC 11.0 10^3/uL (4.8-10.8) H 10/01/23 06:45
RBC 4.46 10^6/uL (4.20-5.40) 10/01/23 06:45
Hgb 13.5 g/dL (12.0-16.0) 10/01/23 06:45
Hct 39.5 % (37.0-47.0) 10/01/23 06:45
Plt Count 318 10^3/uL (130-400) 10/01/23 06:45
Sodium 136 mmol/L (135-145) 10/01/23 06:45
Potassium 4.5 mmol/L (3.5-5.1) 10/01/23 06:45
Chloride 99 mmol/L (98-107) 10/01/23 06:45
Carbon Dioxide 29 mmol/L (22-30) 10/01/23 06:45
BUN 17 mg/dl (7-17) 10/01/23 06:45
Creatinine 0.6 mg/dL (0.6-1.0) 10/01/23 06:45
eGFR > 60.00 10/01/23 06:45
Glucose 132 mg/dl (70-99) H 10/01/23 06:45
Calcium 10.0 mg/dl (8.4-10.2) 10/01/23 06:45
Albumin 4.6 g/dl (3.5-5.0) 10/01/23 06:45
Physical Exam
-
Vital Signs:
Vital Signs
Temp Pulse Resp BP Pulse Ox
98.4 F 97 20 161/87 98
10/01/23 14:30 10/01/23 14:30 10/01/23 14:30 10/01/23 14:30 10/01/23 14:30
Cardiovascular:: Regular rate and rhythm
Respiratory:: Bilateral: CTA
Lung Excursion:: Normal
Abdomen:: Nontender and Soft
Bowel Sounds:: Normal
Extremity Edema:: +1: Right: and None: Left:
Rodrigues Catheter: No
[2023-10-01] MEDS: LOVENOX 40 MG SC (18:30)
--- NOTE | 2023-10-01 21:30 | PTCARENOTE ---
Pt arrived as transfer from 4th floor via wheelchair. Pt able to transfer from to bed with single point cane, with right leg immobilizer in place. Once in bed, immobilizer removed per pt request. External female cath applied per pt request. +1
Pitting RLE edema noted. Palpable peripheral pulses present. Bed alarm on bed turned on. Pt instructed on the importance of using call hernadez. Will continue to monitor.
[2023-10-01 23:00] VITALS: BP 189/86
--- NOTE | 2023-10-01 23:00 | PTCARENOTE ---
Pt upset about having her room changed. Pt moved from private room to semi private in with confused pt. Pt AAOx3, no confusion noted at this time. Emotional support provided to pt. Nursing broiler supervisor notified. Pt reports pain at tolerable level.
Will continue to monitor.
[2023-10-02] MEDS: TYLENOL PO ×2 (01:13→23:05)
--- NOTE | 2023-10-02 06:25 | PTCARENOTE ---
Pt slept well overnight. No confusion noted. Pt cooperative with care. Will continue to monitor.
[2023-10-02 06:52] LABS: % Basophils 0.8 % (0-2); % Eosinophils 1.6 % (0-6); % Immature Granulocytes 0.3 % (0-0.5); % Lymphocytes 22.8 % (20.5-51.1); % Monocytes 9.8 % (1.7-9.3); % Neutrophils 64.7 % (42.2-75.2); Absolute Basophils 0.1 10^3/uL (0-0.2); Absolute Eosinophils 0.1 10^3/uL (0-0.7); Absolute Monocytes 0.9 10^3/uL (0.1-0.6); Absolute Neutrophils 5.7 10^3/uL (1.4-6.5); Hematocrit 40.2 % (37.0-47.0); Hemoglobin 13.7 g/dL (12.0-16.0); Mean Corp Hgb Conc. 34.1 g/dL (33.0-37.0); Mean Platelet Volume 9.7 fL (7.4-10.4); Nucleated Red Blood Cells % 0 %; Platelet Count 295 10^3/uL (130-400); Red Blood Cell Count 4.42 10^6/uL (4.20-5.40); White Blood Cell Count 8.9 10^3/uL (4.8-10.8)
[2023-10-02 07:21] LABS: ALT (SGPT) 20 U/L (0-35); AST (SGOT) 28 U/L (14-36); Albumin 4.1 g/dl (3.5-5.0); Alkaline Phosphatase 62 U/L (38-126); Blood Urea Nitrogen 18 mg/dl (7-17); Calcium 9.5 mg/dl (8.4-10.2); Carbon Dioxide 28 mmol/L (22-30); Chloride 99 mmol/L (98-107); Estimated Creatinine Clearance 65 ml/min; Glucose 133 mg/dl (70-99); Potassium 3.9 mmol/L (3.5-5.1); Sodium 135 mmol/L (135-145); Total Bilirubin 0.8 mg/dl (0.2-1.3); Total Protein 6.5 g/dl (6.3-8.2); eGFR > 60.00
[2023-10-02 07:35] VITALS: BP 163/92
[2023-10-02] MEDS: NORVASC 2.5 MG PO (08:23)
[2023-10-02] MEDS: TYLENOL 1000 MG PO ×2 (08:24→15:38)
[2023-10-02] MEDS: COZAAR 25 MG PO (08:26)
[2023-10-02] MEDS: VITAMIN D3 (cholecalciferol) 25 MCG PO (08:26)
--- NOTE | 2023-10-02 12:04 | PTCARENOTE ---
Pt was bladder scanned due to not voiding much. Bladder scan showed 153 ml in the bladder. Will continue to monitor pt for urinary output
[2023-10-02 14:44] VITALS: BP 131/69
--- NOTE | 2023-10-02 16:44 | W.PN.HOSP.TC ---
Today's Communication/Plan
-
Awaiting placement
PT/OT
Assessment / Plan
Assessment / Plan
Physical Exam
General: Not in acute distress
HEENT: Normocephalic
Respiratory: Clear to Auscultation Bilaterally
Cardiac: S1/S2 and Regular Rhythm
GI: Soft, Non Tender, Non Distended, Normal Bowel Sounds
Musculoskeletal: No Cyanosis. Edema, Right Lower Extremity (Right knee tenderness suprapatellar and medial aspect with generalized swelling)
Skin: Warm and Dry
Neuro: AAO x 3, Nonfocal/grossly intact bilaterally
Psych: Anxious (Secondary to pain)

MRI of the Right Knee, as per radiologist's report
IMPRESSION:
1. High-grade tear at the attachment of the patella with the medial patellar retinaculum and medial patellofemoral ligament.
2. No MRI evidence for a quadriceps tendon tear.
3. Large hemarthrosis.
4. Severe osteoarthrosis of the right knee with extensive full-thickness articular cartilage loss involving the entire patella and femoral trochlea.

Assessment/Plan
83-year-old female without any past medical history presented with fall and severe right knee pain and inability to bear weight afterwards. Knee x-ray showed no evidence of fracture, but large suprapatellar joint effusion. Lower extremity CT shows
large joint effusion extending into the suprapatellar recess which could represent hemorrhage and effusion.
#Right knee pain, likely dislocated patella
#Tricompartment degenerative changes and large suprapatellar joint effusion of the right knee
-Consulted Ortho: no surgery needed as no quad tendon tear on MRI, but likely dislocated patella
-Pain control
-Weightbearing as tolerated right lower extremity in knee immobilizer
-Knee immobilizer but as per orthopedics, could consider transitioning patient to a hinged knee brace locked in extension if patient is adamant about not wearing the immobilizer. Dr. Bobby's initial plan would be to transition to her hinged knee
brace on outpatient basis but could consider doing this during her hospitalization if it does not significantly delay her discharge
-Follow-up with Dr. Bobby in 10 to 14 days outpatient
#Hyponatremia -- Euvolemic -- RESOLVED
-Sodium previously worsened 133 to 129 overnight but now back to normal
-Continue PO FR 48 ounces per day
-Consulted nephrology for possible Samsca or 3% saline: patient received Samsca on 09/30/23
#Hypertension
-Started low sodium diet
-Amlodipine 2.5 mg daily started as new medication
DVT Prophylaxis: Lovenox
Code Status: DNR
Anticipated Discharge: 24 - 48 hours
Subjective/Interval History
-
Date of Service: October 02, 2023
Patient was seen and examined. She denied any new, significant symptoms or complaints.
Objective Data
-
Labs:
Laboratory Results
10/02/23
06:20
WBC 8.9
Hgb 13.7
Hct 40.2
Plt Count 295
Sodium 135
Potassium 3.9
Chloride 99
Carbon Dioxide 28
BUN 18 H
Creatinine 0.7
Glucose 133 H
Calcium 9.5
Total Bilirubin 0.8
AST 28
ALT 20
Alkaline Phosphatase 62
Vital Signs:
Vital Signs
Temp Pulse Resp BP Pulse Ox
98.4 F 90 16 131/69 98
10/02/23 14:44 10/02/23 14:44 10/02/23 14:44 10/02/23 14:44 10/02/23 14:44
I&O
10/01/23 10/02/23 10/03/23
06:59 06:59 06:59
Intake Total 960 / 960 420 / 420 420 / 420
Output Total 2450 / 2450 400 / 400
Balance -1490 / -1490 20 / 20 420 / 420
[2023-10-02] MEDS: LOVENOX 40 MG SC (17:22)
[2023-10-02 23:07] VITALS: BP 147/66
[2023-10-03] MEDS: TYLENOL 1000 MG PO ×4 (00:55→23:56)
[2023-10-03 06:21] VITALS: BMI 33.6
[2023-10-03 07:48] VITALS: BP 143/75
[2023-10-03] MEDS: NORVASC 2.5 MG PO (08:49)
[2023-10-03] MEDS: VITAMIN D3 (cholecalciferol) 25 MCG PO (08:49)
[2023-10-03] MEDS: COZAAR 25 MG PO (08:49)
[2023-10-03 12:00] VITALS: BP 172/85; PULSE 89; O2SAT 97
--- NOTE | 2023-10-03 12:43 | W.PN.HOSP.TC ---
Today's Communication/Plan
-
PT/OT
Case Management working on placement to [facility] tomorrow
Assessment / Plan
Assessment / Plan
Physical Exam
General: Not in acute distress
HEENT: Normocephalic
Respiratory: Clear to Auscultation Bilaterally
Cardiac: S1/S2 and Regular Rhythm
GI: Soft, Non Tender, Non Distended, Normal Bowel Sounds
Musculoskeletal: No Cyanosis. Edema, Right Lower Extremity (Right knee tenderness suprapatellar and medial aspect with generalized swelling - IMPROVED -- right knee brace in place)
Skin: Warm and Dry
Neuro: AAO x 3, Nonfocal/grossly intact bilaterally
Psych: Anxious (Secondary to pain)

MRI of the Right Knee, as per radiologist's report
IMPRESSION:
1. High-grade tear at the attachment of the patella with the medial patellar retinaculum and medial patellofemoral ligament.
2. No MRI evidence for a quadriceps tendon tear.
3. Large hemarthrosis.
4. Severe osteoarthrosis of the right knee with extensive full-thickness articular cartilage loss involving the entire patella and femoral trochlea.

Assessment/Plan
83-year-old female without any past medical history presented with fall and severe right knee pain and inability to bear weight afterwards. Knee x-ray showed no evidence of fracture, but large suprapatellar joint effusion. Lower extremity CT shows
large joint effusion extending into the suprapatellar recess which could represent hemorrhage and effusion.
#Right knee pain, likely dislocated patella
#Tricompartment degenerative changes and large suprapatellar joint effusion of the right knee
-Consulted Ortho: no surgery needed as no quad tendon tear on MRI, but likely dislocated patella
-Pain control
-Weightbearing as tolerated right lower extremity in knee immobilizer
-Knee immobilizer but as per orthopedics, but transitioned patient to a hinged knee brace locked in extension since patient did not want to wear a knee immobilizer.
-Follow-up with Dr. Bobby in 8 to 12 days outpatient
#Hyponatremia -- Euvolemic -- RESOLVED
-Sodium previously worsened 133 to 129 overnight but now back to normal
-Continue PO FR 48 ounces per day
-Consulted nephrology for possible Samsca or 3% saline: patient received Samsca on 09/30/23
#Hypertension
-Started low sodium diet
-Amlodipine 2.5 mg daily started as new medication
DVT Prophylaxis: Lovenox
Code Status: DNR
Anticipated Discharge: Within 24 hours
Subjective/Interval History
-
Date of Service: October 03, 2023
Patient was seen and examined. She was very happy with her new knee brace and denied any new significant symptoms or complaints.
Objective Data
-
Vital Signs:
Vital Signs
Temp Pulse Resp BP Pulse Ox
97.9 F 85 17 143/75 97
10/03/23 07:48 10/03/23 07:48 10/03/23 07:48 10/03/23 07:48 10/03/23 07:48
I&O
10/02/23 10/03/23 10/04/23
06:59 06:59 06:59
Intake Total 420 / 420 820 / 820
Output Total 400 / 400
Balance 820 / 820
--- NOTE | 2023-10-03 13:01 | CM ---
CM following re: discharge planning.
Reviewed pt's chart, met with pt.
According to MD pt is medically stable to be discahrged today.
Per CM note, a referral made to [facility].
CM spoke to [facility] director of graduate medical education Erin and she stated she is not aware of the referral, they do not have a bed available today and they might have a bed available tomorrow and she will conform it tomorrow.
Pt needs updated PT and OT evaluations for insurance purposes.
D/C plan: [facility] when a bed is available. Pt will need an auth from [employer].
CM will follow to assist pt with discharge to [facility].
--- NOTE | 2023-10-03 15:19 | PTCARENOTE ---
patient reports right knee tenderness and has swelling. right knee brace in place, tolerating diet, transferring with use of rolling walker with assist x1 to br, sat oob to chair for 2 1/2 hours. vss, will continue to monitor.
[2023-10-03 15:42] VITALS: BP 134/65
[2023-10-03] MEDS: LOVENOX 40 MG SC (17:04)
[2023-10-03 23:00] VITALS: BP 138/74
[2023-10-04 06:19] VITALS: BMI 33.7
[2023-10-04 07:30] VITALS: BP 169/81
[2023-10-04] MEDS: TYLENOL 1000 MG PO ×3 (08:29→23:18)
[2023-10-04] MEDS: VITAMIN D3 (cholecalciferol) 25 MCG PO (08:29)
[2023-10-04] MEDS: NORVASC 2.5 MG PO (08:30)
[2023-10-04] MEDS: COZAAR 25 MG PO (08:30)
--- NOTE | 2023-10-04 10:42 | W.PN.HOSP.TC ---
Today's Communication/Plan
-
Discharge today
Assessment / Plan
Assessment / Plan
Physical Exam
General: Not in acute distress
HEENT: Normocephalic
Respiratory: Clear to Auscultation Bilaterally
Cardiac: S1/S2 and Regular Rhythm
GI: Soft, Non Tender, Non Distended, Normal Bowel Sounds
Musculoskeletal: No Cyanosis. Edema, Right Lower Extremity (Right knee tenderness suprapatellar and medial aspect with generalized swelling - IMPROVED -- right knee brace in place)
Skin: Warm and Dry. Red rash on back.
Neuro: AAO x 3, Nonfocal/grossly intact bilaterally
Psych: Anxious (Secondary to pain)

MRI of the Right Knee, as per radiologist's report
IMPRESSION:
1. High-grade tear at the attachment of the patella with the medial patellar retinaculum and medial patellofemoral ligament.
2. No MRI evidence for a quadriceps tendon tear.
3. Large hemarthrosis.
4. Severe osteoarthrosis of the right knee with extensive full-thickness articular cartilage loss involving the entire patella and femoral trochlea.

Assessment/Plan
83-year-old female without any past medical history presented with fall and severe right knee pain and inability to bear weight afterwards. Knee x-ray showed no evidence of fracture, but large suprapatellar joint effusion. Lower extremity CT shows
large joint effusion extending into the suprapatellar recess which could represent hemorrhage and effusion.
#Right knee pain, likely dislocated patella
#Tricompartment degenerative changes and large suprapatellar joint effusion of the right knee
-Consulted Ortho: no surgery needed as no quad tendon tear on MRI, but likely dislocated patella
-Pain control
-Weightbearing as tolerated right lower extremity in knee immobilizer
-Knee immobilizer but as per orthopedics, but transitioned patient to a hinged knee brace locked in extension since patient did not want to wear a knee immobilizer.
-Follow-up with Dr. Bobby in 8 to 12 days outpatient
#Hyponatremia -- Euvolemic -- RESOLVED
-Sodium previously worsened 133 to 129 overnight but now back to normal
-Continue PO FR 48 ounces per day
-Consulted nephrology for possible Samsca or 3% saline: patient received Samsca on 09/30/23
#Hypertension
-Started low sodium diet
-Amlodipine 2.5 mg daily started as new medication
#Red Rash on Back
-Benadryl 25 mg 1x dose, and as needed
-Change bedsheets and replace with new bedsheets that are hypo-allergenic if possible
DVT Prophylaxis: Lovenox
Code Status: DNR
More than 30 minutes spent in discharge including
Final examination of the patient
Summarizing hospital stay
Instructions for continuing care to all relevant caregivers
Preparation of discharge records, prescriptions, and referral forms
Total time spent (in minutes): 37
Anticipated Discharge: Today
Subjective/Interval History
-
Date of Service: October 04, 2023
Patient was seen and examined. She denied any knee pain, she did have an itchy rash on her back.
Objective Data
-
Vital Signs:
Vital Signs
Temp Pulse Resp BP Pulse Ox
97.7 F 79 18 169/81 99
10/04/23 07:30 10/04/23 07:30 10/04/23 07:30 10/04/23 07:30 10/04/23 07:30
I&O
10/03/23 10/04/23 10/05/23
06:59 06:59 06:59
Intake Total 820 / 820 840 / 840
Balance 820 / 820 840 / 840
[2023-10-04] MEDS: BENADRYL 25 MG PO ×2 (10:44→17:42)
[2023-10-04 10:55] VITALS: BP 156/72; PULSE 81; O2SAT 97
--- NOTE | 2023-10-04 14:43 | W.DS.TRANS ---
DC Summary - [employer]
-
Discharge Instructions:
Discharge Diagnosis/Procedures #Right knee pain, likely dislocated patella
#Tricompartment degenerative changes and large
suprapatellar joint effusion of the right knee
#Hyponatremia
#Hypertension
#Red Rash on Back
MRI of the Right Knee, as per radiologist's
report
'IMPRESSION:
1. High-grade tear at the attachment of the
patella with the medial patellar retinaculum and
medial patellofemoral ligament.
2. No MRI evidence for a quadriceps tendon tear.
3. Large hemarthrosis.
4. Severe osteoarthrosis of the right knee with
extensive full-thickness articular cartilage
loss involving the entire patella and femoral
trochlea.'
Diet Restrict fluids to 48 oz
Activity Other activity
Additional Activity Weightbearing as tolerated right lower extremity
in knee immobilizer/knee brace
Driving Restrictions No driving
Blood Work Recheck CBC and BMP within 5 to 7 days with your
outpatient physician's office.
Other Services PT,OT
Instructions:
Stand-Alone Forms:
Changes to Home Medications: Yes
Discharge Medications:
DC Medications w/original date entered in [facility]
'Like Prevagen' 1 tab PO DAILY Supplement 09/29/23
Ashwagandha 1 tab PO DAILY Supplement 09/29/23
Beet Root 2 tab PO DAILY Supplement 09/29/23
apple cider vinegar 2 tab PO QPM Supplement 09/29/23
ascorbic acid (vitamin C) 500 mg tablet (Vitamin C) 500 mg PO DAILY Supplement 09/29/23
calcium carbonate 500 mg PO QPM Supplement 09/29/23
cholecalciferol (vitamin D3) 25 mcg (1,000 unit) tablet (Vitamin D3) 25 mcg PO DAILY Supplement 09/29/23
collagen 1 tab PO QPM Supplement 09/29/23
glucosamine sulfate 500 mg tablet (Glucosamine) 500 mg PO DAILY Supplement 09/29/23
magnesium 200 mg tablet 200 mg PO QPM Supplement 09/29/23
therapeutic multivitamin 1 tab PO DAILY Supplement 09/29/23
vitamin E 268 mg (400 unit) capsule 268 mg PO QPM Supplement 09/29/23
acetaminophen 500 mg tablet 1,000 mg (2 x 500 mg) PO Q8HPRN PRN mild pain #0 tabs 10/04/23
amlodipine 2.5 mg tablet 2.5 mg PO DAILY #30 tabs 10/04/23
losartan 25 mg tablet 25 mg PO DAILY #30 tabs 10/04/23
Home Medication Changes
Amlodipine and Losartan are new medications to help control your blood pressure.
Acetaminophen changed from 1000 mg Q4Hprn to 1000 mg Q8Hprn to avoid Tylenol toxicity.
Pending Results: No
Total time spent discharging patient (in min): 37
--- NOTE | 2023-10-04 15:21 | CM ---
CM following re: discharge planning.
Reviewed pt's chart.
According to MD pt is medically stable to be discharged today
PT and OT continue to recommend SNF level of care.
[facility] is a preferred SNF.
[facility] called [facility] on weekend call liaison Gina and she confirmed that [facility] has no bed available today and a bed probably will be available tomorrow.
has been nitrified.
D/C plan: [facility] probably tomorrow. An auth from [facility] required
CM will follow to assist pt wit discharge to [facility] when a bed is available.
[2023-10-04 16:00] VITALS: BP 171/74
[2023-10-04] MEDS: LOVENOX 40 MG SC (17:40)
[2023-10-04 17:51] VITALS: BP 124/62
[2023-10-04 23:00] VITALS: BP 122/65
[2023-10-05 06:20] VITALS: BMI 33.2
[2023-10-05 07:30] VITALS: BP 152/90
[2023-10-05] MEDS: VITAMIN D3 (cholecalciferol) 25 MCG PO (07:59)
[2023-10-05] MEDS: NORVASC 2.5 MG PO (07:59)
[2023-10-05] MEDS: TYLENOL 1000 MG PO ×3 (07:59→23:01)
[2023-10-05] MEDS: COZAAR 25 MG PO (07:59)
--- NOTE | 2023-10-05 10:28 | W.PN.HOSP.TC ---
Today's Communication/Plan
-
CHest XR
pending CM for D/C
Assessment / Plan
Assessment / Plan
83yo F with PMHX of HTN and OA, came after fall without LOC, when she lost her balance trying to move a chair. Found large R hemarthrosis and ligamental tear, ortho advised conservative mgmt. Also accidental hyponatremia, improved on Samca. Nephro
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 Upon d/c weekly BMP for at least 1 month advised. Pending bed in rehab
A/P:
#R High grade tear at the attachment of patella and medial patellofemoral ligament complicated by traumatic hemarthrosis
#Severe OA
Ortho followed: WBAT with knee immobilizer, follow up as outpatient in 2 weeks
#Upper back fine rash with pruritus
appears as contact dermatitis. Improved with Benadryl
cont topical steroids
If no improvement - apparatus repair mechanic as ouptatient - daughter verbalized understanding of the instructions
#hyponatremia, possible 2/2 SIADH (pain induced?)
Weekly BMP for at least 1 month daughter was informed and verbalized understanding of the instructions
improved s/p Samca
continue fluid restriction 48Oz
TSH WNL
XR chest pending
#Essential HTN
added amlodipine
DVT ppx lovenox
DNR/DNI
I have spent at least 36min reviewing chart, test results, communication with consultants and direct patient care
Anticipated Discharge: Within 24 hours
Subjective/Interval History
-
Date of Service: October 05, 2023
Objective Data
-
Vital Signs:
Vital Signs
Temp Pulse Resp BP Pulse Ox
98 F 86 18 152/90 97
10/05/23 07:30 10/05/23 07:30 10/05/23 07:30 10/05/23 07:30 10/05/23 07:30
I&O
10/04/23 10/05/23 10/06/23
06:59 06:59 06:59
Intake Total 840 / 840 1080 / 1080
Balance 840 / 840 1080 / 1080
Review of Systems
-
History Source: Patient
All other systems: Reviewed and negative
Physical Exam
-
General: No Apparent Distress
HEENT: Normocephalic and Atraumatic
Respiratory: Clear to Auscultation
Cardiac: Regular Rhythm
GI: Soft, Nontender and Nondistended
Genito-urinary: No Costovertebral Tender
Musculoskeletal: No Clubbing, No Cyanosis and No Edema
Skin: Warm
Neuro: Awake, Alert, Oriented and AO x 3
Psych: Calm
[2023-10-05] MEDS: DIPROSONE 0.05% 1 APPLIC TOPICAL ×2 (10:39→19:53)
--- NOTE | 2023-10-05 12:40 | CM ---
Addendum entered by VALE HerreraW 10/05/23 15:50:
Received call back from Melia at [facility] who stated that auth is [id number] 5 days skilled level of care NRD 10/09/23 clinical needs to be called in to [phone].
Placed a call to Erin in admissions at [place] who stated that she has a bed available tomorrow and she can use that auth starting 10/05.
Will update RN.
#For report [phone] fax# [phone]
Addendum entered by Cely Jolly [facility] 10/05/23 14:57:
Received call back from the medical care evaluation specialist Dr. Edwards, who stated that she approved patient and media sales representative will call back with the number of days and level. Will await return call.
Addendum entered by Cely Jolly [facility] 10/05/23 14:50:
pending auth [id number]
Original Note:
Placed a call to admissions at [facility], who confirmed that bed is available for patient upon authorization. NPI for facility, [id number] Dr. Dillon Wade [id number]
#For report [phone] fax [phone]
Placed a call to [facility] and spoke with a media sales representative named, Melia, who stated, once clinical was reviewed, she would have to get the medical care evaluation specialist to review. Will await return call.
Plan: Case management will continue to follow and assist with discharge planning. Hopeful transfer to [place] if auth is obtained.
--- NOTE | 2023-10-05 14:33 | W.DCSUMMARY ---
Discharge Summary
Discharge Data
Date of Admission: 09/29/23
Date of Discharge: 10/05/23
-
Pending Results: No
Hospital Course
83yo F with PMHX of HTN and OA, came after fall without LOC, when she lost her balance trying to move a chair. Found large R hemarthrosis and ligamental tear, ortho advised conservative mgmt. Also accidental hyponatremia, improved on Samca. Nephro
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 Upon d/c weekly BMP for at least 1 month advised. Medically stable for d/c to rehab. Daughter verbalized instructions to follow BMP with PCP weekly for 1 mo. I have spent at least 36min preparing d/c
A/P:
#R High grade tear at the attachment of patella and medial patellofemoral ligament complicated by traumatic hemarthrosis
#Severe OA
#Upper back fine rash with pruritus
#hyponatremia, possible 2/2 SIADH (pain induced?)
#Essential HTN
Discharge Plan
-
Patient Disposition: Care Home/SNF
Discharge Diagnosis/Procedures: #Right knee pain, likely dislocated patella
#Tricompartment degenerative changes and large suprapatellar joint effusion of the right knee
#Hyponatremia
#Hypertension
#Red Rash on Back
MRI of the Right Knee, as per radiologist's report
'IMPRESSION:
1. High-grade tear at the attachment of the patella with the medial patellar retinaculum and medial patellofemoral ligament.
2. No MRI evidence for a quadriceps tendon tear.
3. Large hemarthrosis.
4. Severe osteoarthrosis of the right knee with extensive full-thickness articular cartilage loss involving the entire patella and femoral trochlea.'
Condition: Good
Diet: Restrict fluids to 48 oz
Activity: Other activity
Additional Activity: Weightbearing as tolerated right lower extremity in knee immobilizer/knee brace
Driving Restrictions: No driving
Blood Work: Recheck CBC and BMP within 5 to 7 days with your outpatient physician's office.
Other Services: PT and OT
Activity Restrictions/Additional Instructions:
Recheck CBC and BMP within 5 to 7 days with your outpatient physician's office.
Referrals:
Kaia Foss PA-C [Family Provider] - in less than 1 week
Abid Bobby MD [Active] - in one to two weeks (Hospital follow-up of subluxation or dislocation of knee patella and effusion)
Kay Hernández DO [Active] - in two to three weeks (Itchy rash on back during hospitalization)
Additional Discharge Medication Instructions: Amlodipine and Losartan are new medications to help control your blood pressure.
Acetaminophen changed from 1000 mg Q4Hprn to 1000 mg Q8Hprn to avoid Tylenol toxicity.
Prescriptions:
New
losartan 25 mg Tablet
25 mg PO DAILY Qty: 30 1RF
amlodipine 2.5 mg Tablet
2.5 mg PO DAILY Qty: 30 1RF
Continued
'Like Prevagen'
1 tab PO DAILY
Patient Comments:
09/29/2023: family states its like Prevagen but they get it from [facility]
Ashwagandha
1 tab PO DAILY
glucosamine sulfate [Glucosamine] 500 mg Tablet
500 mg PO DAILY
therapeutic multivitamin Tablet
1 tab PO DAILY
calcium carbonate 500 mg calcium (1,250 mg) Tablet
500 mg PO QPM
ascorbic acid (vitamin C) [Vitamin C] 500 mg Tablet
500 mg PO DAILY
vitamin E 268 mg (400 unit) Capsule
268 mg PO QPM
magnesium 200 mg Tablet
200 mg PO QPM
cholecalciferol (vitamin D3) [Vitamin D3] 25 mcg (1,000 unit) Tablet
25 mcg PO DAILY
Beet Root
2 tab PO DAILY
apple cider vinegar
2 tab PO QPM
collagen
1 tab PO QPM
Changed
acetaminophen 500 mg Tablet
1,000 mg PO Q8HPRN PRN (Reason: mild pain) Qty: 0 0RF
Discharge Orders:
Discharge Patient (As Directed); Ordered 10/04/23
Ordered By: Harsh Mccoy
Discharge Date and Time
Print Language: GEORGIAN
[2023-10-05 15:00] VITALS: BP 142/75
[2023-10-05] MEDS: LOVENOX 40 MG SC (17:19)
[2023-10-05 23:17] VITALS: BP 139/80
[2023-10-06 02:48] VITALS: BMI 33.3
[2023-10-06] MEDS: SKELAXIN 800 MG PO (05:03)
[2023-10-06 07:52] VITALS: BP 149/80
[2023-10-06] MEDS: NORVASC 2.5 MG PO (08:22)
[2023-10-06] MEDS: VITAMIN D3 (cholecalciferol) 25 MCG PO (08:22)
[2023-10-06] MEDS: TYLENOL 1000 MG PO ×2 (08:22→15:56)
[2023-10-06] MEDS: COZAAR 25 MG PO (08:23)
[2023-10-06] MEDS: DIPROSONE 0.05% 1 APPLIC TOPICAL (08:23)
--- NOTE | 2023-10-06 09:29 | W.PN.HOSP.TC ---
Today's Communication/Plan
-
pending bed in rehab
Assessment / Plan
Assessment / Plan
83yo F with PMHX of HTN and OA, came after fall without LOC, when she lost her balance trying to move a chair. Found large R hemarthrosis and ligamental tear, ortho advised conservative mgmt. Also accidental hyponatremia, improved on Samca. Nephro
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 Upon d/c weekly BMP for at least 1 month advised. Pending bed in rehab - CM aware, remains medically appropriate for d/c
A/P:
#R High grade tear at the attachment of patella and medial patellofemoral ligament complicated by traumatic hemarthrosis
#Severe OA
Ortho followed: WBAT with knee immobilizer, follow up as outpatient in 2 weeks
#Upper back fine rash with pruritus
appears as contact dermatitis. Improved with Benadryl
cont topical steroids
If no improvement - radiographic technologist as outpatient - daughter verbalized understanding of the instructions
#hyponatremia, possible 2/2 SIADH (pain induced?)
Weekly BMP for at least 1 month daughter was informed and verbalized understanding of the instructions
improved s/p Samca
continue fluid restriction 48Oz
TSH WNL
XR chest pending
#Essential HTN
added amlodipine
DVT ppx lovenox
DNR/DNI
I have spent at least 36min reviewing chart, test results, communication with consultants and direct patient care
Anticipated Discharge: Within 24 hours
Subjective/Interval History
-
Date of Service: October 06, 2023
Objective Data
-
Vital Signs:
Vital Signs
Temp Pulse Resp BP Pulse Ox
98.0 F 94 18 149/80 96
10/06/23 07:52 10/06/23 08:23 10/06/23 07:52 10/06/23 08:23 10/06/23 07:52
I&O
10/05/23 10/06/23 10/07/23
06:59 06:59 06:59
Intake Total 1080 / 1080 820 / 820
Balance 1080 / 1080 820 / 820
Review of Systems
-
History Source: Patient
All other systems: Reviewed and negative
Physical Exam
-
General: No Apparent Distress
HEENT: Normocephalic, Atraumatic and Moist Mucous Membranes
Respiratory: Clear to Auscultation
Cardiac: Regular Rhythm
GI: Soft, Nontender and Nondistended
Genito-urinary: No Costovertebral Tender
Musculoskeletal: No Clubbing, No Cyanosis, No Edema and Other (Pain in R knee)
Skin: Warm
Neuro: Awake, Alert, Oriented and AO x 3
Psych: Calm
--- NOTE | 2023-10-06 13:38 | CM ---
Patient has been medically cleared for discharge. Placed a call to Leslie in admissions at [facility] who confirmed bed availability for today. For report [phone] fax# [phone]
Met with patient who was agreeable to discharge. Reviewed IMM. Will put on chart. Patient stated that she does not have transportation. She called her daughter, Aby, who stated that she could not pick her up but was able to talk to Benito from
[facility] and provide patient's credit card information. Benito stated that patient can be picked up at 15:30.
[employer] mixer and RN updated.
Plan: Case management will continue to follow and assist with discharge planning. [facility].
[2023-10-06 15:17] VITALS: BP 153/72
== END 2023-10-06 16:23 | DRG 563 ==
LOC: 3 WEST ACU 20:34
PROVIDERS: Clinical Nurse Specialist Family Health; Hospitalist; Physician Assistant; ADMITTING PHYSICIAN Hospitalist; ATTENDING PHYSICIAN Internal Medicine; CONSULT PHYSICIAN Internal Medicine; CONSULT PHYSICIAN Orthopaedic Surgery; EMERGENCY PHYSICIAN Emergency Medicine; FAMILY PHYSICIAN Physician Assistant Medical
DX: S83.8X1A Sprain of other specified parts of right knee, initial encounter (principal); E22.2 Syndrome of inappropriate secretion of antidiuretic hormone; L29.9 Pruritus, unspecified; M25.461 Effusion, right knee; M17.11 Unilateral primary osteoarthritis, right knee; I10 Essential (primary) hypertension; W18.39XA Other fall on same level, initial encounter; Z96.652 Presence of left artificial knee joint
CPT/HCPCS: 71046; 73502; 73564; 73700; 73721; 80048; 80053; 83930; 83935; 84300; 84443; 85025; 93005; 96374; 96376; 97116; 97163; 97166; 97530; 99285